=== PATIENT | female | born 1960 | race Caucasian/White ===

== ENCOUNTER 2016-08-16 10:47 | Day surgery (SDC) | payer OTHER ==
[2016-08-15 15:07] VITALS: BMI 31.0
[~2016-08-16] VITALS: Ht 162.6 cm; Wt 85.4 kg
[2016-08-16] VITALS (10 sets, daily range): BP systolic 100–118; BP diastolic 50–70; PULSE 60–82; RESP 11–25; Ht 162.6 cm; Wt 85.4 kg
[~2016-08-16 10:47] MED LIST: ASPI-535 PO; BENA10TA48 PO; GLIP-95 PO; MELO-110 PO; PROPOFOL 200 MG INJ ONE; SIMV20TA PO; SITA1TAB7 PO
--- NOTE | 2016-08-16 13:08 | HPN ---
Date/Time of Note Date/Time of Note DATE: 08/16/16 TIME: 13:07 Interval H&P Admission Note Pt. seen H&P reviewed: No system changes POLA FRYE Aug 16, 2016 13:08
[2016-08-16] MEDS ORDERED: FENTAnyl 50 MCG/ML VIAL ONE ×2 (13:11→14:18)
[2016-08-16] MEDS ORDERED: MIDAZOLAM 1 MG/ML 2 ML INJ ONE (13:11)
[2016-08-16] MEDS ORDERED: PROPOFOL 20 ML ONE ×2 (13:11→14:20)
[2016-08-16] MEDS ORDERED: PHENYLephrine (100 MCG/ML) 5ML SYG ONE ×3 (13:22→14:28)
[2016-08-16] MEDS ORDERED: ONDANSETRON 4 MG INJ ONE (13:24)
[2016-08-16] MEDS ORDERED: KETOROLAC 30 MG INJ ONE (13:24)
[2016-08-16] MEDS ORDERED: METOCLOPRAMIDE 10 MG INJ ONE (13:24)
[2016-08-16] MEDS ORDERED: DEXAMETHASONE 4 MG/ML 1 ML INJ ONE (13:24)
[2016-08-16] MEDS ORDERED: CEFAZOLIN 2 GM/50 ML (PMX) 50 ML IVPB ONE (13:30)
[2016-08-16] MEDS ORDERED: ALBUMIN HUMAN 5% 250 ML IV PRN (14:00)
[2016-08-16] MEDS ORDERED: ONDANSETRON 4 MG INJ IV PRN (14:00)
[2016-08-16] MEDS ORDERED: hydrALAzine 20 MG INJ IV PRN (14:00)
[2016-08-16] MEDS ORDERED: HYDROmorphONE (0.2 MG/ML) 10ML SYG IV PRN ×3 (14:00)
[2016-08-16] MEDS ORDERED: EPHEDrine SULFATE 50 MG/5 ML SYG IV PRN (14:00)
[2016-08-16] MEDS ORDERED: LABETALOL HCL 20MG INJ IV PRN (14:00)
[2016-08-16] MEDS ORDERED: MEPERIDINE 25 MG INJ IV PRN (14:00)
[2016-08-16] MEDS ORDERED: morphine (1 MG/ML) 10ML SYRINGE IV PRN ×3 (14:00)
[2016-08-16] MEDS ORDERED: DIPHENHYDRAMINE 50 MG INJ IV PRN (14:00)
[2016-08-16] MEDS ORDERED: METOCLOPRAMIDE 10 MG INJ IV PRN (14:00)
[2016-08-16] MEDS ORDERED: ACETAMINOPHEN 1000MG/100ML IV 100 ML ONE (14:20)
--- NOTE | 2016-08-16 15:29 | OPR ---
DATE OF OPERATION: 08/16/2016 SURGEON: Alexis Kinney MD ANESTHESIA: General. PREOPERATIVE DIAGNOSIS: Left wrist TFCC tear. POSTOPERATIVE DIAGNOSIS: Left wrist TFCC tear. PROCEDURE: 1. Left wrist diagnostic arthroscopy. 2. Left wrist arthroscopic debridement of TFCC tear and synovitis. OPERATIVE FINDINGS: Central TFCC tear with a stable rim both radially and ulnarly, with a good tram poline effect, and synovitis throughout the dorsal aspect of the wrist joint. INDICATION FOR PROCEDURE: A 56-year-old female with longstanding left wrist pain. She attempted an ti-inflammatories and bracing, as well as activity modification, and did not have pain relief. MRI showed a central TFCC tear and the options were discussed with the patient and she elected to procee d with surgical intervention, understanding the risks and benefits. DESCRIPTION OF PROCEDURE: The patient was seen in the preoperative area. All further questions wer e answered. Again, she gave informed consent, understanding the risks and benefits. She was taken to the operative suite and placed in the supine position. She was placed under general anesthesia a nd 2 grams of Ancef were given. The left upper extremity was prepped with ChloraPrep stick and drap ed in the usual sterile fashion. Esmarch bandage was used to exsanguinate the extremity and tourniq uet was inflated to 250 mmHg. Finger traps were placed on the left index, middle, and ring fingers a nd 10 pounds of weight was placed on the arm for traction. The 3-4 portal was established using a s tab incision and spreading with a curved hemostat down to the level of the capsule. The capsule was penetrated with the curved hemostat and the introducer for the scope was placed in the wrist joint. The arthroscopy camera was then placed into the cannula and a diagnostic arthroscopy was performed . The radial gutter was clear, as was the radioscaphoid joint. The scapholunate ligament was intac t, with some mild fraying dorsally. The lunate had a small cartilage defect on it, as did the triqu etrum. There was some cartilage fraying on both the lunate and the triquetrum. The TFCC was visual ized, showing a central tear with fraying, but a preserved rim with a good trampoline effect. There was synovitis throughout the dorsal aspect of the wrist. The 6R portal was established with a stab incision and a curved hemostat down to the level of the capsule. A probe was inserted and confirme d the diagnostic arthroscopy findings. A shaver was introduced and was used to debride the TFCC tea r, as well as the synovitis. There were stable, clean edges of the TFCC after debridement and the a rthroscopy camera and shaver were taken out of the radiocarpal joint. A curved hemostat was used to penetrate into the midcarpal joint and a diagnostic arthroscopy was performed in the midcarpal join t, with normal anatomy and no pathology. The scope was taken out of the wrist and the wounds were c losed with 4-0 Prolene. Gauze was placed over the wounds, followed by Webril and a short arm splint . The weight was taken off and fingers were taken out of finger traps. The tourniquet was deflated after 39 minutes, and the patient was awakened from anesthesia. She was taken the postoperative peters ite in stable condition and tolerated the procedure well, without complication. SPECIMENS: None. ESTIMATED BLOOD LOSS: 5 mL. COUNTS: Sponge, instrument and needle counts were correct. TOURNIQUET TIME: 39 minutes. CONDITION ON DISCHARGE: Stable. Dictated By: ALEXIS YOUNG/MILES Conf#: [id number] DID#: [id number]
== END 2016-08-16 16:23 | disposition home or self-care (01) ==
LOC: SDS 10:47
PROVIDERS: ATTEND Orthopaedic Surgery Hand Surgery
DX: S63.592A Other specified sprain of left wrist, initial encounter (principal); X58.XXXA Exposure to other specified factors, initial encounter; Y93.89 Activity, other specified; Y92.89 Other specified places as the place of occurrence of the external cause; M65.88 Other synovitis and tenosynovitis, other site; I10 Essential (primary) hypertension; E11.9 Type 2 diabetes mellitus without complications; E66.9 Obesity, unspecified; Z68.32 Body mass index [BMI] 32.0-32.9, adult
CPT/HCPCS: 29846; 82962; J0131; J1100; J1885; J2250; J2370; J2405; J2765; J3010; Z7512; Z7610

== ENCOUNTER 2017-02-15 10:54 | Day surgery (SDC) | payer OTHER ==
[2017-02-14 10:49] VITALS: BMI 31.0
[~2017-02-15] VITALS: Ht 162.6 cm; Wt 86.0 kg
[2017-02-15] VITALS (11 sets, daily range): BP systolic 95–136; BP diastolic 49–70; PULSE 66–101; RESP 0–28; Ht 162.6 cm; Wt 86.0 kg
[~2017-02-15 10:54] MED LIST changes: -PROPOFOL 200 MG INJ ONE; +SEVOFLURANE 15 MIN ONE
--- NOTE | 2017-02-15 11:07 | HPN ---
Date/Time of Note Date/Time of Note DATE: 02/15/17 TIME: 11:07 Interval H&P Admission Note Pt. seen H&P reviewed: No system changes TANO RAUSCH MD Feb 15, 2017 11:07
[2017-02-15] MEDS ORDERED: TRAM-40 PO (11:29)
[2017-02-15] MEDS ORDERED: GABA300C16 PO (11:29)
[2017-02-15] MEDS ORDERED: MIDAZOLAM 1 MG/ML 2 ML INJ ONE (14:41)
[2017-02-15] MEDS ORDERED: PROPOFOL 20 ML ONE (14:41)
[2017-02-15] MEDS ORDERED: LIDOCAINE 1% (MDV) 20 ML INJ ONE (14:41)
[2017-02-15] MEDS ORDERED: FENTAnyl 50 MCG/ML VIAL ONE (14:41)
[2017-02-15] MEDS ORDERED: ONDANSETRON 4 MG INJ ONE ×2 (14:50→16:05)
[2017-02-15] MEDS ORDERED: FAMOTIDINE 20 MG INJ ONE (14:51)
[2017-02-15] MEDS ORDERED: CEFAZOLIN 1 GM INJ ONE (14:52)
[2017-02-15] MEDS ORDERED: EPINEPHrine 1 MG/ML 30 ML INJ IRR ONE (15:12)
[2017-02-15] MEDS ORDERED: HYDROmorphONE (0.2 MG/ML) 10ML SYG IV ONE (15:54)
[2017-02-15] MEDS ORDERED: PROCHLORPERAZINE 10 MG INJ IV PRN (16:00)
[2017-02-15] MEDS ORDERED: HYDROmorphONE (0.2 MG/ML) 10ML SYG IV PRN (16:00)
[2017-02-15] MEDS ORDERED: METOCLOPRAMIDE 10 MG INJ IV PRN (16:00)
[2017-02-15] MEDS ORDERED: ONDANSETRON 4 MG INJ IV PRN (16:00)
[2017-02-15] MEDS ORDERED: MEPERIDINE 25 MG INJ IV PRN (16:00)
[2017-02-15] MEDS ORDERED: MEPERIDINE 25 MG INJ ONE (16:05)
[2017-02-15] MEDS: HYDROmorphONE (0.2 MG/ML) 10ML SYG IV PRN ×3 (16:08→16:28)
[2017-02-15] MEDS ORDERED: KETOROLAC 30 MG INJ ONE (16:34)
--- NOTE | 2017-02-15 16:39 | OPR ---
Date/Time of Note Date/Time of Note DATE: 02/15/17 TIME: 16:33 Operative Report Free Text/Dictation Pre Op Dx: Left knee medial and lateral meniscus tear Post Op Dx: Same Procedure: Left knee arthroscopy partial medial and lateral meniscectomies Abrasion chondroplasty medial femoral condyle Surgeon: Tano rausch History Faculty Member: None Anesthesiologist: Dr. Magdaleno EBL: Minimal Date of Surgery: February 15, 2017 Complications: None Implants: None Operative findings: 1. Cleavage tear of the posterior horn of the medial meniscus. 2. Degenerative tear of the anterior horn of the lateral meniscus extending into the body. 3. 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 4. Partial ACL tear less than 20% of the thickness of the ACL. Indications for Procedure: Ms. Jay Das is a 56-year-old female with progressive pain in her left knee. She has failed nonoperative treatment. She now presents for the above listed procedure. Risks and benefits were discussed with the patient and informed consent was obtained. Description of Procedure: The correct extremity was identified in the preoperative area she is brought back to the operating room where she had general endotracheal anesthesia preoperative antibiotics were administered. The left lower extremity was prepped and draped in central manner. Timeout was performed. Then used an Esmarch to exsanguinate the extremity. Thigh tourniquet was inflated to 250 mmHg. Standard medial lateral portal incisions were made. First and attention medial compartment significant finding was a cleavage tear of the posterior horn. This is repeated back to stable rim I then used a shaver to suck up loose fragments using ArthroWand to smooth off the remaining rim meniscus. The articular surface and the femoral condyle had about grade III chondromalacia of about 40% of the weightbearing area. This is debrided and loose hanging articular cartilage was debrided. At this point I turned my attention lateral compartment the anterior horn of the lateral meniscus had significant fraying. This is debrided back to stable rim. I then used a shaver and ArthroWand to smooth out the remainder meniscus. The articular cartilage was intact. At this point I turned my attention to the notch and ACL had a partial tear this was carefully debrided the rest of the ACL did seem to be intact. Exam of the patellofemoral articulation at some grade II/III chondromalacia on the medial patellar facet this was carefully debrided as well. No loose bodies were found. I then turned my attention closure to close the portal sites with 3-0 nylon dry sterile dressing applied patient then and transported to the recovery in stable condition Surgeon see signature line TANO RAUSCH MD Feb 15, 2017 16:39
[2017-02-15] MEDS: KETOROLAC 30 MG INJ IV STA ×3 (16:46→16:56)
[2017-02-15] MEDS: KETOROLAC 15 MG INJ IM STA ×2 (16:47→16:56)
[2017-02-15] MEDS ORDERED: morphine 2 MG INJ IV PRN (17:00)
[2017-02-15] MEDS ORDERED: HYDROCODONE/APAP (5/325) TAB PO PRN (17:00)
[2017-02-15] MEDS ORDERED: HYDROCODONE/APAP (10/325) TAB PO PRN (17:00)
== END 2017-02-15 18:00 | disposition home or self-care (01) ==
LOC: SDS 10:54
PROVIDERS: ATTEND Specialist
DX: M23.222 Derangement of posterior horn of medial meniscus due to old tear or injury, left knee (principal); M23.242 Derangement of anterior horn of lateral meniscus due to old tear or injury, left knee; M94.262 Chondromalacia, left knee; E11.9 Type 2 diabetes mellitus without complications
CPT/HCPCS: 29880; 82962; 84703; J0171; J0690; J1170; J1885; J2175; J2250; J2405; J3010; Z7512; Z7610

== ENCOUNTER 2017-08-16 05:43 | Inpatient (IN) | END 2017-08-19 16:15 | disposition home health service (06) | DRG 470 ==

== ENCOUNTER 2017-08-31 10:59 | Emergency (ER) | END 2017-08-31 17:09 | disposition home or self-care (01) ==

== ENCOUNTER 2017-09-24 05:28 | Day surgery (SDC) | END 2017-09-24 10:33 | disposition home or self-care (01) ==